=== PATIENT | male | born 1990 | race Caucasian/White ===

== ENCOUNTER 2017-01-26 11:08 | Emergency (ER) | payer OTHER ==
[~2017-01-26] VITALS: Ht 182.9 cm; Wt 100.2 kg
[2017-01-26 11:16] VITALS: TEMP 36.7; O2SAT 92; Ht 182.9 cm; Wt 100.2 kg
[2017-01-26] MEDS ORDERED: LORAZEPAM 2 MG/ML 1 ML VIAL IV STA (11:28)
[2017-01-26] MEDS ORDERED: TOPIRAMATE 25 MG TAB PO ONE (11:30)
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
[2017-01-26 11:50] LABS: HEMATOCRIT 46.5 % (42-52); MEAN CELL VOLUME 92.6 fL (80-100); MEAN CORPUSCULAR HEMOGLOBIN 33.5 pg (25-34); MEAN CORPUSCULAR HGB CONC 36.1 g/dl (32-36); MEAN PLATELET VOLUME 10.8 fL (7.4-10.4); PLATELET COUNT 268 K/uL (130-400); RED BLOOD COUNT 5.02 M/uL (4.7-6.1)
[2017-01-26 11:58] LABS: BUN/CREATININE RATIO 10.6 (10-20); CALCIUM 9.6 mg/dl (8.5-10.1); CREATININE 1.5 mg/dl (0.60-1.40)
[2017-01-26] MEDS ORDERED: MULTTAB58 PO (12:05)
[2017-01-26] MEDS ORDERED: TOPI25TA99 PO (12:05)
[2017-01-26] MEDS ORDERED: CETI10CA PO (12:05)
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
[2017-01-26] MEDS ORDERED: IBUPROFEN 600 MG TAB PO STA (13:32)
[2017-01-26 13:57] LABS: BENZODIAZEPINE, URINE NEG (NEG); COCAINE,URINE NEG (NEG); PHENCYCLIDINE, URINE NEG (NEG)
[2017-01-26] MEDS ORDERED: IBUP-1427 PO (15:00)
[2017-01-26 15:20] VITALS: BP 140/82; PULSE 97; O2SAT 98
== END 2017-01-26 15:22 | disposition home or self-care (01) ==
LOC: C.EDC 11:12
DX: S32.019A Unspecified fracture of first lumbar vertebra, initial encounter for closed fracture (principal); S22.069A Unspecified fracture of T7-T8 vertebra, initial encounter for closed fracture; S22.089A Unspecified fracture of T11-T12 vertebra, initial encounter for closed fracture; V43.52XA Car driver injured in collision with other type car in traffic accident, initial encounter; Y92.488 Other paved roadways as the place of occurrence of the external cause; G40.909 Epilepsy, unspecified, not intractable, without status epilepticus; Z79.899 Other long term (current) drug therapy